=== PATIENT | male | born 1995 | race Caucasian/White ===

== ENCOUNTER 2017-03-03 21:46 | Emergency (ER) | payer SELFPAY ==
[2017-03-03 21:56] VITALS: BP 126/85; PULSE 83; RESP 16; TEMP 97; O2SAT 98
[2017-03-03] MEDS ORDERED: Tetracaine 0.5% Ophth 2 ML BOTTLE OS ONE (22:15)
[2017-03-03] MEDS ORDERED: Fluorescein 1 mg Ophthalmic Strip OS ONE (22:15)
[2017-03-03] MEDS ORDERED: Tetracaine 0.5% Ophth (OR ONLY) ONE (22:16)
[2017-03-03] MEDS ORDERED: Fluorescein 1 mg Ophthalmic Strip ONE (22:16)
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
[2017-03-03] MEDS ORDERED: Erythromycin 0.5% Ophth Oint 1 APPLIC/3.5 G OS STA (22:24)
[2017-03-03] MEDS ORDERED: Erythromycin 0.5% Ophth Oint 1 APPLIC/3.5 G ONE (22:27)
== END 2017-03-03 22:50 | disposition home or self-care (01) ==
LOC: C.ER 21:46
DX: S05.02XA Injury of conjunctiva and corneal abrasion without foreign body, left eye, initial encounter (principal); X58.XXXA Exposure to other specified factors, initial encounter

== ENCOUNTER 2017-11-04 18:48 | Emergency (ER) | payer SELFPAY ==
[2017-11-04 19:06] VITALS: BP 135/83; PULSE 66; TEMP 99.1; O2SAT 99
--- NOTE | 2017-11-04 19:36 | C.PDOC ---
History Of Present Illness 22 yo ma with no PMH c/o diffuse headache since yesterday. Took Motrin at 11am without significant improvement. Denies nausea, vomiting, changes in vision, change in sensation, fever, neck pain or trauma. Notes he has a h/o of similar headaches , no change in intensity. Time Seen by Provider: 11/04/17 19:10 Chief Complaint (Nursing): Headache History Per: Patient History/Exam Limitations: no limitations Onset/Duration Of Symptoms: Days (yesterday) Current Symptoms Are (Timing): Still Present Quality: "Pain" Associated Symptoms: denies: Photophobia, Blurred Vision, Nausea, Vomiting, Extremity Weakness Past Medical History Vital Signs: Last Vital Signs Temp 99.1 F 11/04/17 19:04 Pulse 66 11/04/17 19:04 Resp 18 11/04/17 20:51 BP 135/83 11/04/17 19:04 Pulse Ox 99 11/04/17 19:55 - [facility] Procedures CLOSURE SKIN & SUBCUTANEOUS NEC (01/21/15) Family History: States: Unknown Family Hx - Social History Hx Tobacco Use: No Hx Alcohol Use: No Hx Substance Use: No - Immunization History Hx Influenza Vaccination: No Hx Pneumococcal Vaccination: No Review Of Systems Except As Marked, All Systems Reviewed And Found Negative. Neurological: Positive for: Headache Physical Exam - Physical Exam Appears: Well, Non-toxic, No Acute Distress (pt is eating plantains , on his phone, seemingly very comfortable) Skin: Normal Color, Warm, Dry Head: Atraumatic, Normacephalic Eye(s): bilateral: Normal Inspection, PERRL, EOMI Ear(s): Bilateral: Normal Nose: Normal Oral Mucosa: Moist Throat: Normal, No Erythema, No Exudate Neck: Normal, Normal ROM, Supple Chest: Symmetrical Cardiovascular: Rhythm Regular Respiratory: Normal Breath Sounds, No Accessory Muscle Use Gastrointestinal/Abdominal: Normal Exam Back: Normal Inspection Extremity: Normal ROM Neurological/Psych: Oriented x3, Normal Speech, Normal Cognition, Normal Cranial Nerves (2-12 intact, no focal deficits), Normal Motor, Normal Sensation ED Course And Treatment O2 Sat by Pulse Oximetry: 99 Progress Note: Toradol and Reglan ordered. On reassessment, patient playing a game on his phone. Notes headache min improved. On reevlauation, ptis resting comfortably, is tolerating PO, and pain has improved. Patient has no neurologic deficit, photophobia, rash, fever, or nuchal rigidity. Patient was instructed to follow up with physician/clinic in 1-2 days. Disposition - Disposition Referrals: [facility] [Outside] Disposition: HOME/ ROUTINE Disposition Time: 19:38 Condition: STABLE Additional Instructions: Follow up with your primary medical doctor or clinic in 2-5 days for further evaluation. Take medications as prescribed. Return to the emergency department at any time if symptoms persist or worsen. Prescriptions: Naproxen [Naprosyn] 1 tab PO BID PRN #20 tab PRN Reason: Pain Instructions: Headache, Adult (DC) Forms: [employer] (Thai) - Clinical Impression Clinical Impression: Headache
[2017-11-04 20:51] VITALS: RESP 18
== END 2017-11-04 20:50 | disposition home or self-care (01) ==
LOC: C.ER 18:48
DX: R51 Headache (principal)
CPT/HCPCS: 96372; 99284; J1885

== ENCOUNTER 2018-04-15 00:56 | Emergency (ER) | payer SELFPAY ==
[2018-04-15 01:18] VITALS: BP 117/79; O2SAT 99
--- NOTE | 2018-04-15 02:33 | C.PDOC ---
History Of Present Illness 22 year old male presents to the ED c/o headache for the past 5 days. Patient reports having previous headache symptoms in the past but he has never had imaging done in the past. Patient reports symptoms are not improving with Advil. Patient denies fever, chills, nausea, vomit, dizziness, visual changes, weakness, numbness. Time Seen by Provider: 04/15/18 01:39 Chief Complaint (Nursing): Headache History Per: Patient History/Exam Limitations: no limitations Onset/Duration Of Symptoms: Days (5) Current Symptoms Are (Timing): Still Present Quality: "Pain" Recent travel outside of the [place]: No Additional History Per: Patient Past Medical History Reviewed: Historical Data, Nursing Documentation, Vital Signs Vital Signs: Last Vital Signs Temp 98.7 F 04/15/18 01:13 Pulse 87 04/15/18 01:13 Resp 16 04/15/18 01:13 BP 117/79 04/15/18 01:13 Pulse Ox 99 04/15/18 01:13 - Medical History PMH: No Chronic Diseases Surgical History: No Surg Hx - [facility] Procedures CLOSURE SKIN & SUBCUTANEOUS NEC (01/21/15) Family History: States: Unknown Family Hx - Social History Hx Tobacco Use: No Hx Alcohol Use: No Hx Substance Use: No - Immunization History Hx Influenza Vaccination: No Hx Pneumococcal Vaccination: No Review Of Systems Constitutional: Negative for: Fever, Chills Eyes: Negative for: Vision Change Respiratory: Negative for: Cough, Shortness of Breath Gastrointestinal: Negative for: Nausea, Vomiting Skin: Negative for: Rash Neurological: Positive for: Headache. Negative for: Dizziness Physical Exam - Physical Exam Appears: Non-toxic, No Acute Distress Skin: Normal Color, Warm, Dry Head: Atraumatic, Normacephalic Eye(s): bilateral: Normal Inspection, PERRL, EOMI Neck: Normal ROM, Supple Chest: Symmetrical Cardiovascular: Rhythm Regular Respiratory: Normal Breath Sounds, No Rales, No Rhonchi, No Wheezing Gastrointestinal/Abdominal: Soft, No Tenderness, No Guarding, No Rebound Extremity: Normal ROM, No Tenderness, No Swelling Neurological/Psych: Oriented x3, Normal Speech, Normal Cognition Gait: Steady ED Course And Treatment O2 Sat by Pulse Oximetry: 99 (ON RA) Pulse Ox Interpretation: Normal - CT Scan/US CT head Other Rad Studies (CT/US): Read By Radiologist, Radiology Report Reviewed CT/US Interpretation: Name:GUSTABO GONCALVES Exam Date:Apr 15, 2018 3:26:29 AM EDT. Modality Type:CT\\SR. Description:CT - BRAIN. Gender:M Laterality:Not applicable. :97 Referring Physician:Nicola Mann). CT SCAN OF THE BRAIN WITHOUT IV CONTRAST. CLINICAL INDICATION: Headache. TECHNIQUE: Axial and reformatted sagittal and coronal images of the brain obtained without IV contrast administration. Normal size of the ventricles and extra-axial spaces for the patient's age. Normal white matter tracts of the supratentorial brain. Normal basal ganglia and thalami. Normal brainstem. Normal cerebellum. There is no demonstrated extra- axial, intraparenchymal, or intraventricular hemorrhage. There are no findings of an acute ischemic infarction. Normal calvarium. There is no demonstrated fracture. Normal soft tissue structures. Normal visualized paranasal sinuses. IMPRESSION: Normal unenhanced CT scan of the brain. . Electronically signed on Apr 15, 2018 4:31:52 AM EDT by: Carolina Covarrubias M.D., Certified by DAVON DANIELS, Neuroradiology Progress Note: Plan: - Ct head. - Reglan 10 mg PO. - Toradol 30 mg IM. On re-evaluation patient feels better and is stable to be d/c home with Clinic follow up. 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 - Scribe Statement The provider has reviewed the documentation as recorded by the Scribe Nelson Forman All medical record entries made by the Scribe were at my direction and personally dictated by me. I have reviewed the chart and agree that the record accurately reflects my personal performance of the history, physical exam, medical decision making, and the department course for this patient. I have also personally directed, reviewed, and agree with the discharge instructions and disposition.
[2018-04-15 06:54] VITALS: PULSE 78; RESP 20; TEMP 98.5
--- NOTE | 2018-04-15 09:06 | CT ---
Date of service: 04/15/2018 PROCEDURE: CT HEAD WITHOUT CONTRAST. HISTORY: headache x 5 days COMPARISON: None available. TECHNIQUE: Axial computed tomography images were obtained through the head/brain without intravenous contrast. Radiation dose: Total exam DLP = 1075.66 mGy-cm. This CT exam was performed using one or more of the following dose reduction techniques: Automated exposure control, adjustment of the mA and/or kV according to patient size, and/or use of iterative reconstruction technique. FINDINGS: HEMORRHAGE: No intracranial hemorrhage. BRAIN: No mass effect or edema. No atrophy or chronic microvascular ischemic changes. VENTRICLES: Unremarkable. No hydrocephalus. CALVARIUM: Unremarkable. PARANASAL SINUSES: Unremarkable as visualized. No significant inflammatory changes. MASTOID AIR CELLS: Unremarkable as visualized. No inflammatory changes. OTHER FINDINGS: None. IMPRESSION: No acute intracranial abnormality. If symptoms persists, consider correlation with MRI. These findings were preliminarily reported at 4:31 a.m. on 04/15/[address] Carolina Covarrubias from [facility].
== END 2018-04-15 03:55 | disposition home or self-care (01) ==
LOC: C.ER 00:56
DX: R51 Headache (principal)
CPT/HCPCS: 70450; 96372; 99284; J1885

== ENCOUNTER 2018-06-27 16:36 | Emergency (ER) | payer SELFPAY ==
[2018-06-27 16:42] VITALS: BMI 23.5
[2018-06-27 16:47] VITALS: BP 121/78; PULSE 95; TEMP 97.3; O2SAT 100
--- NOTE | 2018-06-27 17:31 | C.PDOC ---
History Of Present Illness 30 y/o male comes in to ED complaining of a worsening facial acne for the last 2 months. Patient has not seen a crane helper and does not take any medications for the symptoms. Patient denies fever or chills. Time Seen by Provider: 06/27/18 16:59 Chief Complaint (Nursing): Abnormal Skin Integrity History Per: Patient History/Exam Limitations: no limitations Onset/Duration Of Symptoms: Days Current Symptoms Are (Timing): Still Present Past Medical History Reviewed: Historical Data, Nursing Documentation, Vital Signs Vital Signs: Last Vital Signs Temp 97.3 F L 06/27/18 16:42 Pulse 95 H 06/27/18 16:42 Resp 20 06/27/18 16:42 BP 121/78 06/27/18 16:42 Pulse Ox 100 06/27/18 16:42 - [facility] Procedures CLOSURE SKIN & SUBCUTANEOUS NEC (01/21/15) Family History: States: No Known Family Hx - Social History Hx Tobacco Use: No Hx Alcohol Use: No Hx Substance Use: No - Immunization History Hx Tetanus Toxoid Vaccination: No Hx Influenza Vaccination: No Hx Pneumococcal Vaccination: No Review Of Systems Skin: Positive for: Other (Acne) Physical Exam - Physical Exam Appears: Non-toxic, No Acute Distress Skin: Warm, Dry Head: Other (erythematous papular cystic acne to face) Eye(s): bilateral: Normal Inspection Oral Mucosa: Moist Neck: Supple Cardiovascular: Rhythm Regular, No Murmur Respiratory: Normal Breath Sounds, No Rales, No Rhonchi, No Wheezing Gastrointestinal/Abdominal: Soft, No Tenderness Extremity: Bilateral: Atraumatic, Normal ROM Neurological/Psych: Oriented x3, Normal Speech ED Course And Treatment O2 Sat by Pulse Oximetry: 100 (RA) Pulse Ox Interpretation: Normal Medical Decision Making Medical Decision Making: Impression: Acne Plan: --Ibuprofen 600 mg PO --Doryx 100 mg PO Patient was instructed to follow up with crane helper within 2 days for further evaluation. Information was given. Disposition Counseled Patient/Family Regarding: Diagnosis, Need For Followup, Rx Given - Disposition Referrals: Yasmin Salas MD [Medical Doctor] - Disposition: HOME/ ROUTINE Disposition Time: 17:29 Condition: STABLE Additional Instructions: follow up with your doctor or crane helper within 2 days Information provided call to make an appointment take medications as prescribed return to ER if symptoms worsens or progress Prescriptions: Doxycycline Hyclate 100 mg PO BID #42 capsule Instructions: Acne, Acne (ED) Forms: [facility] (Setswana), General Discharge Instructions - Clinical Impression Clinical Impression: Acne - Scribe Statement The provider has reviewed the documentation as recorded by the Angelica Thomas Provider Attestation: All medical record entries made by the Angelica were at my direction and personally dictated by me. I have reviewed the chart and agree that the record accurately reflects my personal performance of the history, physical exam, medical decision making, and the department course for this patient. I have also personally directed, reviewed, and agree with the discharge instructions and disposition.
[2018-06-27 17:52] VITALS: RESP 18
== END 2018-06-27 17:51 | disposition home or self-care (01) ==
LOC: C.ER 16:36
DX: L70.9 Acne, unspecified (principal)

== ENCOUNTER 2018-10-30 23:58 | Emergency (ER) | payer MEDICAID ==
[2018-10-30 23:58] VITALS: BMI 23.5
[2018-10-31 01:58] VITALS: BP 106/64; PULSE 59; RESP 17; TEMP 98.4; O2SAT 99
--- NOTE | 2018-10-31 02:02 | C.PDOC ---
History Of Present Illness 23 year old male presents to the ED c/o right ankle pain and swelling. Patient reports he landed wrong on his right ankle while playing basketball tonight. Patient denies fever, chills, rash, weakness, numbness. Time Seen by Provider: 10/31/18 00:55 Chief Complaint (Nursing): Lower Extremity Problem/Injury History Per: Patient History/Exam Limitations: no limitations Onset/Duration Of Symptoms: Hrs Current Symptoms Are (Timing): Still Present Recent travel outside of the [place]: No Additional History Per: Patient - Ankle/Foot Description Of Injury: Twisted Currently Unable To: Bear Weight Past Medical History Reviewed: Historical Data, Nursing Documentation, Vital Signs Vital Signs: Last Vital Signs Temp 98.4 F 10/31/18 01:57 Pulse 59 L 10/31/18 01:57 Resp 17 10/31/18 01:57 BP 106/64 10/31/18 01:57 Pulse Ox 99 10/31/18 01:57 Primary Care Provider: Yasmin Salas Medical History PMH: No Chronic Diseases Surgical History: No Surg Hx - [facility] Procedures CLOSURE SKIN & SUBCUTANEOUS NEC (01/21/15) Family History: States: Unknown Family Hx - Social History Hx Tobacco Use: No Hx Alcohol Use: No Hx Substance Use: No - Immunization History Hx Tetanus Toxoid Vaccination: No Hx Influenza Vaccination: No Hx Pneumococcal Vaccination: No Review Of Systems Constitutional: Negative for: Fever, Chills Gastrointestinal: Negative for: Vomiting, Diarrhea Musculoskeletal: Positive for: Foot Pain. Negative for: Leg Pain Skin: Negative for: Rash Neurological: Negative for: Weakness, Numbness Physical Exam - Physical Exam Appears: Non-toxic, No Acute Distress Skin: Normal Color, Warm, Dry, No Rash Head: Atraumatic, Normacephalic Eye(s): bilateral: Normal Inspection Neck: Normal ROM, Supple Extremity: No Normal ROM (right foot limited due to pain), Tenderness (right ankle lateral malleolus), Capillary Refill (< 2 seconds), Swelling (right ankle lateral malleolus) Pulses: Left Dorsalis Pedis: Normal, Right Dorsalis Pedis: Normal Neurological/Psych: Oriented x3, Normal Speech, Normal Cognition Gait: Halting ED Course And Treatment O2 Sat by Pulse Oximetry: 99 (ON RA) Pulse Ox Interpretation: Normal - Other Rad Right ankle X-Ray X-Ray: Interpreted by Me, Viewed By Me Interpretation: No fracture or dislocation seen Right foot X-Ray X-Ray: Interpreted by Me, Viewed By Me Interpretation: No fracture or dislocation Progress Note: Plan: - Motrin 600 mg PO. - Right ankle X-Ray. - Right foot X- Ray. Patient was placed on a posterior splint for support and given crutches. Patient advised to follow up with Podiatry. Disposition Counseled Patient/Family Regarding: Diagnosis, Need For Followup, Rx Given - Disposition Disposition: HOME/ ROUTINE Disposition Time: 02:23 Condition: STABLE Additional Instructions: Please follow up with PMD Take tylenol and motrin for pain Return to ER if worse Prescriptions: Ibuprofen [Motrin] 600 mg PO Q6H #24 tab Instructions: Ankle Sprain (DC) Forms: [employer] (Faroese), Work Excuse - POA Present On Arrival: None - Clinical Impression Clinical Impression: Right ankle sprain - PA / PETROGRAPHER / Resident Statement MD/DO has reviewed & agrees with the documentation as recorded. - Scribe Statement The provider has reviewed the documentation as recorded by the Scribe Nelson Forman All medical record entries made by the Belgicaibhaily were at my direction and personally dictated by me. I have reviewed the chart and agree that the record accurately reflects my personal performance of the history, physical exam, medical decision making, and the department course for this patient. I have also personally directed, reviewed, and agree with the discharge instructions and disposition.
--- NOTE | 2018-10-31 08:40 | RAD ---
Date of service: 10/31/2018 PROCEDURE: Right Foot Radiographs. HISTORY: r/o fx COMPARISON: None. TECHNIQUE: 3 views obtained. FINDINGS: BONES: Normal. No fracture. JOINTS: Normal. SOFT TISSUES: Normal. OTHER FINDINGS: None. IMPRESSION: Normal right foot radiographs. Comments: No preliminary ER impression at this time.
--- NOTE | 2018-10-31 09:17 | RAD ---
Date of service: 10/31/2018 PROCEDURE: Right Ankle Radiographs. HISTORY: r/o fx COMPARISON: None available. TECHNIQUE: 3 views obtained. FINDINGS: BONES: A dorsal cortical osseous avulsion fracture is suspect. An additional possible trabecular microfracture of the more anterior talus also needs to be considered given series 3, image 1 appearance. 1 mm flake fracture fragment inferior to the medial malleolus frontal view noted. Another chip osseous avulsion fracture here needs to be considered. JOINTS: Normal. No osteoarthritis. Ankle mortise maintained. Talar dome intact SOFT TISSUES: Marked lateral perimalleolar soft tissue swelling. OTHER FINDINGS: None. IMPRESSION: Marked lateral perimalleolar soft tissue swelling with findings suspect for a dorsal talar osseous avulsion possibly an additional anterior talar trabecular microfracture. Consider MRI of the right ankle/hindfoot for injury assessment. Comments: Study marked for PA review .
== END 2018-10-31 02:59 | disposition home or self-care (01) ==
LOC: C.ER 23:58
DX: S93.401A Sprain of unspecified ligament of right ankle, initial encounter (principal); X50.9XXA Other and unspecified overexertion or strenuous movements or postures, initial encounter; Y93.67 Activity, basketball; Y92.39 Other specified sports and athletic area as the place of occurrence of the external cause